=== PATIENT | male | born 1975 | race Caucasian/White ===

== ENCOUNTER 2021-05-13 19:48 | Emergency (ER) | payer OTHER ==
[2021-05-13] MEDS ORDERED: KETOROLAC 30 MG/ML INJ ONE (21:10)
[2021-05-13] MEDS ORDERED: LIDOCAINE 4% PATCH ONE (21:11)
[2021-05-13] MEDS ORDERED: dexAMETHasone 4 MG/ML VIAL ONE (21:12)
--- NOTE | 2021-05-14 12:04 | EDPHYS ---
Physician Documentation [facility] Name: Toro Busch Age: 46 yrs Sex: Male : 1975 Arrival Date: 05/13/2021 Time: 19:53 Bed 24 Private MD: CRATER Physician Rafael Hearn HPI: 05/13 20:19 This 46 yrs old Male presents to ER via Wheelchair with complaints of Back pm1 Pain. 20:19 The patient presents with pain that is acute, with no known mechanism of injury. The pm1 symptoms are located in the low back. Onset: The symptoms/episode began/occurred 1 week(s) ago. The pain radiates to the left leg. Associated signs and symptoms: Pertinent negatives: dysuria, fever, nausea, numbness, tingling. Modifying factors: The patient symptoms are alleviated by remaining still, the patient symptoms are aggravated by movement. Severity of symptoms: in the emergency department the symptoms are unchanged. The patient has been recently seen at an urgent care, for similar complaints, was given a prescription for pain medications. Historical: - Allergies: 20:00 Hydrocodone-Acetaminophen; sj1 - Home Meds: 20:00 meloxicam 7.5 mg oral tab [Active]; tramadol oral [Active]; sj1 20:02 Flexeril 10 mg Oral tab [Active]; sj1 - PMHx: 20:00 Hyperlipidemia; Lung disease; sj1 - PSHx: 20:00 Cholecystectomy; sj1 - Immunization history:: Client reports having NOT received the Covid vaccine. - Social history:: Smoking status: Patient denies any tobacco usage or history of. Patient uses alcohol, Patient/guardian denies using street drugs. ROS: 20:19 Constitutional: Negative for fever, chills, and weight loss, Cardiovascular: Negative pm1 for chest pain, palpitations, and edema, Respiratory: Negative for shortness of breath, cough, wheezing, and pleuritic chest pain, Abdomen/GI: Negative for abdominal pain, nausea, vomiting, diarrhea, and constipation. 20:19 : Negative for injury, bleeding, discharge, and swelling, MS/Extremity: Negative for injury and deformity, Skin: Negative for injury, rash, and discoloration, Neuro: Negative for headache, weakness, numbness, tingling, and seizure. 20:19 Back: Positive for pain with movement, of the left low back. 20:19 All other systems are negative. Exam: 20:19 Constitutional: This is a well developed, well nourished patient who is awake, alert, pm1 and in no acute distress. Head/Face: Normocephalic, atraumatic. 20:19 Skin: Warm, dry with normal turgor. Normal color with no rashes, no lesions, and no evidence of cellulitis. MS/ Extremity: Pulses equal, no cyanosis. Neurovascular intact. Full, normal range of motion. 20:19 Eyes: Exam is negative for acute changes, Extraocular movements: no acute changes, Conjunctiva: no acute changes, no injection. 20:19 ENT: Exam is negative for acute changes, Mouth: no acute changes, Lips: normal, moist, Oral mucosa: normal, pink and intact, moist. 20:19 Cardiovascular: Exam negative for acute changes, Rate: normal, Rhythm: regular, Pulses: no pulse deficits are appreciated. 20:19 Respiratory: Exam negative for acute changes, respiratory distress, shortness of breath. 20:19 Back: vertebral tenderness, is not appreciated, Straight leg raises: right lower extremity does not illicit pain, left lower extremity illicits pain, at 30 degrees. 20:19 Neuro: Exam negative for acute changes, Orientation: is normal, Mentation: is normal, Motor: is normal, moves all fours. Vital Signs: 19:56 BP 137 / 92; Pulse 85; Resp 18; Temp 97.8(O); Pulse Ox 98% on R/A; Weight 108.86 kg; sj1 Height 5 ft. 9 in. (175.26 cm); Pain 9/10; 21:40 BP 131 / 84; Pulse 81; Resp 19; Temp 98.4; Pulse Ox 99% on R/A; mr2 19:56 Body Mass Index 35.44 (108.86 kg, 175.26 cm) sj1 MDM: 20:10 Patient medically screened. [facility] 20:19 Data reviewed: vital signs. Data interpreted: Pulse oximetry: on room air is 98 %. pm1 Interpretation: normal. ED course: Patient does not want to take any narcotics. 21:41 Counseling: I had a detailed discussion with the patient and/or guardian regarding: the pm1 historical points, exam findings, and any diagnostic results supporting the discharge/admit diagnosis, the need for outpatient follow up, to return to the emergency department if symptoms worsen or persist or if there are any questions or concerns that arise at home. Administered Medications: 20:30 Drug: Lidoderm Patch 5 % (700 mg/patch) 1 patches Route: Topical; Site: affected area; mr2 20:30 Drug: Decadron (dexamethasone) 10 mg Route: IM; Site: left deltoid; mr2 20:30 Drug: Ketorolac 60 mg Route: IM; Site: left deltoid; mr2 Disposition: 05/14 08:44 Co-signature as Attending Physician, Rafael Hearn MD I agree with the assessment and martell plan of care. Disposition Summary: 05/13/21 21:43 Discharge Ordered Location: Home pm1 Problem: new pm1 Symptoms: have improved pm1 Condition: Stable pm1 Diagnosis - Lumbago with sciatica, left side pm1 Followup: pm1 - With: Emergency Department - When: As needed - Reason: Worsening of condition Followup: pm1 - With: Private Physician - When: 2 - 3 days - Reason: Recheck today's complaints, Continuance of care, Re-evaluation by your physician Discharge Instructions: - Discharge Summary Sheet pm1 - Sciatica pm1 Forms: - Medication Reconciliation Form pm1 - Thank You Letter pm1 - Antibiotic Education pm1 - Prescription Opioid Use pm1 - Work release form pm1 Prescriptions: - Medrol (Shankar) 4 mg Oral Tablets, Dose Pack - take 1 tablet by ORAL route as directed - follow package instructions; 1 pm1 packet; Refills: 0, Product Selection Permitted - Lidoderm 5 % Topical adhesive patch,medicated - apply 1 patch by TRANSDERMAL route once daily As needed 12 hours on and 12 pm1 hours off in a 24 hour period; 10 patch; Refills: 0, Product Selection Permitted Signatures: Rafael Hearn MD MD cha Marinas, Patrick, NP B[employer]ER pm1 Shaheed Hallman RN RN mr2 Reyna Tamez RN RN sj1
--- NOTE | 2021-05-14 12:04 | ER ---
Nurse's Notes [facility] Name: Toro Busch Age: 46 yrs Sex: Male : 1975 Arrival Date: 05/13/2021 Time: 19:53 Bed 24 Private MD: Diagnosis: Lumbago with sciatica, left side Presentation: 05/13 19:56 Chief complaint: Patient states: lower back pain x 1 wk, worse on left side, pain sj1 radiates down to left calf, was seen on Thursday at and was prescribed meloxicam and tramadol - no relief. Coronavirus screen: Vaccine status: Patient reports being unvaccinated. Ebola Screen: No symptoms or risks identified at this time. Initial Sepsis Screen: Does the patient meet any 2 criteria? No. Patient's initial sepsis screen is negative. Does the patient have a suspected source of infection? No. Patient's initial sepsis screen is negative. Risk Assessment: Do you want to hurt yourself or someone else? Patient reports no desire to harm self or others. Onset of symptoms was May 15, 2021. 19:56 Method Of Arrival: Wheelchair [facility] 19:56 Acuity: YAJAIRA 3 sj1 Triage Assessment: 20:02 General: Appears in no apparent distress. Behavior is calm, cooperative, appropriate sj1 for age. Pain: Complains of pain in back Pain radiates to left leg Pain currently is 9 out of 10 on a pain scale. at worst was 10 out of 10 on a pain scale. level that patient reports is acceptable is 0 out of 10 on a pain scale. Quality of pain is described as sharp, shooting. Musculoskeletal: Reports pain in back and left leg. Historical: - Allergies: 20:00 Hydrocodone-Acetaminophen; sj1 - Home Meds: 20:00 meloxicam 7.5 mg oral tab [Active]; tramadol oral [Active]; sj1 20:02 Flexeril 10 mg Oral tab [Active]; sj1 - PMHx: 20:00 Hyperlipidemia; Lung disease; sj1 - PSHx: 20:00 Cholecystectomy; sj1 - Immunization history:: Client reports having NOT received the Covid vaccine. - Social history:: Smoking status: Patient denies any tobacco usage or history of. Patient uses alcohol, Patient/guardian denies using street drugs. Screenin:04 Abuse screen: Denies threats or abuse. Denies injuries from another. Nutritional sj1 screening: No deficits noted. Tuberculosis screening: No symptoms or risk factors identified. Fall Risk. Fall Risk Ambulatory Aid- None/Bed Rest/Nurse Assist (0 pts). Assessment: 21:55 Neuro: Level of Consciousness is awake, alert, obeys commands, Gait is steady, Intact mr2 Reports Denies. Musculoskeletal: Reports pain in lumbar area and left leg. Vital Signs: 19:56 BP 137 / 92; Pulse 85; Resp 18; Temp 97.8(O); Pulse Ox 98% on R/A; Weight 108.86 kg; sj1 Height 5 ft. 9 in. (175.26 cm); Pain 9/10; 21:40 BP 131 / 84; Pulse 81; Resp 19; Temp 98.4; Pulse Ox 99% on R/A; mr2 19:56 Body Mass Index 35.44 (108.86 kg, 175.26 cm) sj1 ED Course: 19:53 Patient arrived in ED. ja2 20:00 Triage completed. sj1 20:02 Arm band placed on right wrist. sj1 20:04 Patient has correct armband on for positive identification. sj1 20:06 Julius Ramirez NP is PHCP. pm1 20:06 Rafael Hearn MD is Attending Physician. pm1 20:28 Shaheed Hallman, JAZMYN is Primary Nurse. mr2 21:30 No provider procedures requiring assistance completed. Patient did not have IV access mr2 during this emergency room visit. Administered Medications: 20:30 Drug: Lidoderm Patch 5 % (700 mg/patch) 1 patches Route: Topical; Site: affected area; mr2 20:30 Drug: Decadron (dexamethasone) 10 mg Route: IM; Site: left deltoid; mr2 20:30 Drug: Ketorolac 60 mg Route: IM; Site: left deltoid; mr2 Outcome: 21:43 Discharge ordered by . pm1 21:58 Discharged to home ambulatory. mr2 21:58 Condition: stable 21:58 Discharge instructions given to patient, Instructed on medication usage, Prescriptions given X 2. 21:58 Patient left the ED. mr2 Signatures: Julius Ramirez NP [employer] MANAGER pm1 Vi Butler ja2 Shaheed Hallman RN RN mr2 Dashawn, Sade, RN RN sj1
[2021-05-14 12:09] VITALS: BP 131/84; TEMP 98.4; O2SAT 99
== END 2021-05-13 21:58 | disposition home or self-care (01) ==
LOC: ER 19:48
DX: M54.42 Lumbago with sciatica, left side (principal); E78.5 Hyperlipidemia, unspecified; Z88.6 Allergy status to analgesic agent
CPT/HCPCS: 96372; 99283; J1100